=== PATIENT | male | born 1990 | race Caucasian/White ===

== ENCOUNTER 2023-10-16 22:31 | Emergency (ER) | payer BC, OTHER ==
[2023-10-16 23:00] VITALS: BP 108/80; PULSE 69; RESP 18; TEMP 98.4; BMI 29.0
[2023-10-16] MEDS ORDERED: MAG HYDROX/AL HYDROX/SIMETH -MYLANTA- ORAL SUSPENSION PO ONE (23:17)
[2023-10-16] MEDS ORDERED: FAMOTIDINE 20 MG TABLET PO ONE (23:17)
[2023-10-16] MEDS ORDERED: IBUPROFEN 400 MG TABLET (FP) PO ONE ×2 (23:17→23:21)
[2023-10-16] MEDS ORDERED: FAMOTIDINE 20 MG TABLET ONE (23:20)
[2023-10-16] MEDS ORDERED: MAGNESIUM HYDROX 2400MG/30ML ORAL SUSPENSION 30 ML CUP ONE (23:21)
== END 2023-10-17 01:06 | disposition left against medical advice (07) ==
LOC: JER 22:31
DX: R07.9 Chest pain, unspecified (principal)
CPT/HCPCS: 71046-TC-FY; 93005; 93010; 99284-25